=== PATIENT | male | born 1950 | race Caucasian/White ===

== ENCOUNTER → 2017-07-04 | Outpatient (CLI) | payer MEDICARE, OTHER ==
[~2017-07-04] MED LIST: ATARAX PO; CLARITIN10 M1 PO; ISORDIL10 MG PO; LASIX PO; LOSARTAN POTASS50 MG PO; MEDROL4 MG/DOSE- PO; PEPCID AC20 M2 PO; PRAVASTATIN SOD40 MG PO; PRILOSEC20 MG PO; TESSALON200 MG PO; VIBRAMYCIN100 M1 PO; XANAX0.5 MG PO
--- NOTE | ~2017-07-04 | CR63 ---
[facility] A Service of [facility] & [facility] RADIOLOGY TEXT RESULTS PATIENT: MERISSA WILSON LOCATION: [facility] : 48 UNIT #: [id number] AGE: [address]: Joshua Allen MD SEX: M ORDER DR: [id number] [facility] [address] [place], [place] [address] [id number] O MR#: [id number] Acc #: [id number] NAME: MERISSA WILSON : 1950 SEX: M STUDY DATE/TIME: 07/04/2017 19:04 UNIT: [facility] ROOM: STUDY DESCRIPTION: CR Chest 2 View Attending Physician: Joshua Allen M.D. Ordering Physician: Physician Non-Staff Primary Care Physician: Joshua Allen M.D. MEDICAL IMAGING REPORT This report is preliminary unless electronic signature is present EXAM PA and lateral chest 07/04/2017 INDICATION Cough for 3.5 weeks with shortness of air. History of bronchial asthma. COMPARISON 08/31/2011. FINDINGS A PA and lateral view of the chest were obtained. The heart size and vascularity are normal and lungs are clear. The bones are unremarkable. IMPRESSION No active disease. Dictated by... Alexander Field M.D. THIS IS AN ELECTRONICALLY VERIFIED REPORT Alexander Field M.D. at 07/05/2017 2:00 PM CASSY/thomas TD: 07/05/2017 13:29 JOB #: [id number] MEDICAL IMAGING REPORT Page 1 of 1 COPY
== END | disposition home or self-care (01) ==
LOC: CRAD 18:50
DX: J45.909 Unspecified asthma, uncomplicated (principal)
CPT/HCPCS: 71020